=== PATIENT | female | born 1975 | race Caucasian/White ===

== ENCOUNTER 2023-10-12 14:32 | Emergency (ER) | payer BC, SELFPAY ==
[2023-10-12 14:36] VITALS: BP 100/71
--- NOTE | 2023-10-12 15:37 | ED.GENMED ---
History of Present Illness
General
Chief Complaint: Back Pain
Source: patient
Exam Limitations: none
Time Seen by Provider: 10/12/23 15:13
Nursing documentation reviewed up to this point in time: agreed with
History of Present Illness
History of Present Illness:
Patient is a 48 female who presents with complaints of low back pain. Patient returned 7 this morning she bent over to shave her legs in the shower and feels that she pulled her back out. She felt pain across her lower back worse on the left and
is now unable to straighten. She complains of pain with movement bending twisting turning. She denies any pain with deep breath. She denies any radiation of pain denies any numbness tingling weakness to legs. Denies any incontinence of bowel or
Review of Systems
Review of Systems
Allergies reviewed?: Yes
All Other Systems: ROS reviewed and negative except as documented in HPI and ROS
Constitutional: Reports no symptoms; Denies fever, fatigue or chills
: Denies incontinence
Musculoskeletal: Reports back pain
Skin: Reports no symptoms
Neurological: Reports no symptoms
Hematologic/Lymphatic: Reports no symptoms
Psychiatric: Reports no symptoms
Phy Exam
General Physical Exam
General Presentation: no apparent distress
General age: appears stated age
General Skin: warm and dry
General Habitus: normal
General Mental: alert
General Hydration: appears well hydrated
Neurological Exam
Neurological Exam: alert, oriented x3, no motor deficits, no sensory deficits and other (Normal sensation to bilateral lower extremities normal dorsiflexion plantarflexion negative straight leg raise)
Musculoskeletal Exam
Musculoskeletal Exam: other (Normal inspection to back with tenderness throughout the left lower paralumbar region no bony midline tenderness)
Skin Exam
Skin Exam: normal color and warm/dry
Psychiatric Exam
Psychiatric Exam: normal mood/affect
Course
Orders/Labs/Results
Orders:
Orders
10/12/23 15:35
diazePAM [Valium Injection] 5 mg IM NOW STA
10/12/23 15:36
Ketorolac [Toradol] 30 mg IM NOW STA
Lidocaine [Lidocaine 4% Patch] 1 patch TOPICAL NOW STA
Apply Lidocaine patch(s) to:: lower back left
Vital Signs
Initial and Last Documented VS:
Initial Vital Signs
Temp Pulse Resp BP Pulse Ox
97.4 F 76 18 100/71 98
10/12/23 14:36 10/12/23 14:36 10/12/23 14:36 10/12/23 14:36 10/12/23 14:36
Last Documented Vital Signs
Temp Pulse Resp BP Pulse Ox
97.4 F 71 18 116/78 100
10/12/23 14:36 10/12/23 16:45 10/12/23 16:45 10/12/23 16:45 10/12/23 16:45
MDM/Problems Addressed
Differential Diagnosis Includes:
Not limited to muscle strain less likely disc herniation
MDM/Problems Addressed:
Symptoms are consistent with muscle strain of lumbar spine. Patient with no neurological deficits . Patient was given Valium, Toradol and a lidocaine patch here feeling much better feels well enough to go home. Will DC with Valium ibuprofen or
Tylenol lidocaine patch and close outpatient follow-up family doctor.
*Critical Care Note
Total Time (30-74mins, 75-104mins- exclusive of procedures): Not Applicable
ED Attending Note
-
Portions of this chart may have been created with voice recognition software.� Occasional wrong word or��sound alike� substitutions may have occurred due to the inherent limitations of voice recognition software.
Discharge Plan
Departure
Patient Disposition: Home (Routine Discharge)
Date of Disposition: 10/12/23
Time of Disposition: 16:45
Patient with high blood pressure during this ER visit?: No
Condition: Fair
Covid-19: Not Applicable
Discharge Problem:
Lumbar strain
Instructions: Low Back Pain (DC), Muscle Strain (DC)
Prescriptions:
New
diazepam [Valium] 5 mg tablet
5 mg PO TID PRN (Reason: muscle spasm) Qty: 10 0RF
lidocaine 5 % adhesive patch,medicated
1 patch topical DAILY PRN (Reason: pain) Qty: 15 0RF
Rx Instructions:
remove after 12 hrs
Referrals:
Aaron Ruiz CRNP [Family Provider] -
Activity Restrictions/Additional Instructions:
As discussed ice the affected area for the first 24 hours 20 minutes at a time several times a day followed by warm moist heat after 24 hours.
You may take Aleve twice a day or ibuprofen every 8 hours. In addition you may take Tylenol every 4-6 hours. A prescription for Valium(muscle relaxer) was sent to pharmacy take as directed. In addition a prescription for lidocaine patch was also
sent to your pharmacy to use as directed.
This may be taken up to every 8 hours as needed. This will cause drowsiness. No driving or alcohol while taking this medication as discussed avoid prolonged positions. Avoid lifting. Follow-up with your family doctor the next several days and
return if any worsening of symptoms including worsening pain lower extremity weakness bowel or bladder incontinence.
Interventions
Interventions:
*Risk Screen - Suicide Last Done: 10/12/23 16:12
*General Assessment Last Done: 10/12/23 16:12
*Neglect/Abuse Screening Last Done: 10/12/23 16:12
ED- Fall Risk Assessment Last Done: 10/12/23 16:11
*ED COVID-19 Vaccine History Last Done: 10/12/23 14:42
ED-Musculoskeletal Assessment Last Done: 10/12/23 16:11
Discharge Date and Time
Print Language: SYRIAC
[2023-10-12] MEDS: LIDOCAINE 4% PATCH 1 PATCH TOPICAL (15:52)
[2023-10-12] MEDS: TORADOL 30 MG IM (15:52)
[2023-10-12] MEDS: VALIUM INJECTION 5 MG IM (15:52)
[2023-10-12 16:45] VITALS: BP 116/78
== END 2023-10-12 16:53 | disposition home or self-care (01) ==
LOC: EMR 14:32
PROVIDERS: EMERGENCY PHYSICIAN Emergency Medicine; FAMILY PHYSICIAN Nurse Practitioner Family
DX: S39.012A Strain of muscle, fascia and tendon of lower back, initial encounter (principal); X58.XXXA Exposure to other specified factors, initial encounter; Y93.E8 Activity, other personal hygiene; R56.9 Unspecified convulsions
CPT/HCPCS: 99284; 96372 ×2

== ENCOUNTER 2024-06-29 18:27 | Inpatient (IN) | payer BC, SELFPAY ==
[2024-06-29] VITALS (19 sets, daily range): BP systolic 91–127; BP diastolic 65–83; BMI 28.6
--- NOTE | 2024-06-29 14:38 | ED.GENMED ---
History of Present Illness
General
Chief Complaint: Chest Pain
Source: patient
Exam Limitations: none
Time Seen by Provider: 06/29/24 14:23
History of Present Illness
History of Present Illness:
See MDM
Past History
Past History
ED Past Medical History: None
ED Past Surgical History: Appendectomy
Social History
Tobacco: Former smoker
Alcohol: None
Phy Exam
Physical Exam
Physical Exam:
See MDM
Scores
Heart Score for Chest Pain Patients
STEMI patient?: No
History: Highly Suspicious
ECG: Normal
Age: >45 - <65 years
Risk Factors: 1 or 2 Risk Factors
Troponin: </= Normal Limit
Heart Score for Chest Pain Patients: 4
Heart Score Risk: 20.3% MACE over next 6 weeks
Course
Orders/Labs/Results
Orders:
Orders
06/29/24
Electrocardiogram (*1) Stat
Comment: DONE
06/29/24 14:26
EKG [Electrocardiogram (*1)] Urgent
Reason for Study: Chest Pain
EKG- Treatment ONCE
06/29/24 14:36
CR Chest - 2 Views Urgent
Comment:
Reason For Exam: chest pain
06/29/24 14:37
Complete Blood Count/With Diff Urgent
Comprehensive Metabolic Panel Urgent
Troponin I Urgent
06/29/24 15:40
Ondansetron Injectable [Zofran] 88 mg .ROUTE .STK-MED ONE
06/29/24 15:42
EKG with chest pain [ECG as needed] As Directed
ECG as needed for:: Chest Pain
06/29/24 15:43
Nitroglycerin Sublingual [Nitrostat (Sublingual)] 0.4 mg .ROUTE .STK-MED ONE
06/29/24 15:44
Ondansetron Injectable [Zofran] 4 mg IV NOW STA
06/29/24 15:45
Nitroglycerin Sublingual [Nitrostat (Sublingual)] 0.4 mg SL NOW STA
06/29/24 15:56
Consult Cardiology [CARDIOLOGY CONSULT] Urgent
Consulting Provider: Abelardo Lema
Was physician already notified: Yes
06/29/24 16:29
Troponin I Urgent
06/29/24 16:33
EKG [Electrocardiogram (*1)] Stat
Reason for Study: Chest Pain
06/29/24 16:51
Admit/Transfer Patient As Directed
Co-Sign Provider:
Level of Care: Inpatient admission
Assign to:: IVU
Physician / Group: [facility]
Diagnosis: Accelerating angina
Reason for Hospitalization: Accelerating angina
Expected length of stay greater than two midnights?: Yes
ELOS- Estimated Length of Stay in days: 3
I certify the patient meets the requirements for IP care: Yes
Code Status As Directed
Resuscitation Status: Full Code
PRN Pain Medication Management As Directed
May give lesser potent ordered pain med per pt: Yes
preference::
Protocol:: Medication orders for pain may be administered in a
manner that supports deferring to patient preference
when the pt is:
- Requesting an ordered lesser potent pain medication.
Least to most potent pain medications are defined
as: acetaminophen < NSAID < tramadol < opioids
(morphine, oxycodone, hydromorphone).
- Requesting a lesser dose of the same medication IF
ORDERED.
- Requesting a less intrusive route of administration
if both routes are prescribed by the provider (PO <
IV).
Abnormal Lab Results
06/29/24
14:37
MPV 11.6 H fL
(7.4-10.4)
Absolute Monos (auto) 0.7 H 10^3/uL
(0.1-0.6)
06/29/24 14:37
06/29/24 14:37
Vital Signs
Initial and Last Documented VS:
Initial Vital Signs
Temp Pulse Resp BP Pulse Ox
98.7 F 85 16 120/82 95
06/29/24 14:21 06/29/24 14:21 06/29/24 14:21 06/29/24 14:21 06/29/24 14:21
Last Documented Vital Signs
Temp Pulse Resp BP Pulse Ox
98.7 F 74 14 111/66 100
06/29/24 14:21 06/29/24 16:45 06/29/24 16:45 06/29/24 15:48 06/29/24 16:45
MDM/Problems Addressed
Differential Diagnosis Includes:
HPI and MDM Narrative:
48-year-old female presenting for evaluation of central chest pain described as gastritis. She noted at work about an hour prior to arrival. EMS gave nitroglycerin and aspirin and symptoms appear to resolve. Patient is worried because she has a
significant family history of early cardiac disease. Patient is a former smoker. She takes no medicines otherwise. She has never followed up with cardiology. She has noted intermittent chest discomfort over the past several days that has woken
her up from sleep
Given her history, will obtain 2 troponin rule out. Symptoms do not appear to be exertion
Physical exam
General: Well appearing and non-toxic
HEENT: protecting airway
Neck: appears supple
CV: No evidence of cyanosis. Regular rate and rhythm
Resp: No accessory muscle use
Abd: Non-distended
Extremities: No deformities. No leg edema or unilateral tenderness
Neuro: alert
Psych: Normal affect
Skin: Intact
Problems Addressed including Acute and Chronic Conditions affecting care:
1. Chest pain
Acuity: acute
Prognosis: stable
Details: Given her strong family history of early cardiac disease, will perform 2 troponin rule out
Updates
Initial troponin EKG within normal limits
3:50 PM I was called to bedside for sudden onset of chest pain. It was again relieved with nitroglycerin. Repeat EKG again shows no ischemic changes. Given the recurrent chest pain that is improved with nitro, will have cardiology eval
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
Differential Diagnosis (but not limited to): Noncardiac chest pain, ACS, gastritis
Testing considered:
Drug therapy (if applicable): OTC meds, please see d/c instruction regarding Rx drugs
Amount and/or Complexity of Data Reviewed
Clinical info obtained from: Patient
External data reviewed: N/A
Labs I independently reviewed (but not limited to): Troponin normal
Radiology: N/A
Pulse Ox: not hypoxic
EKG independently reviewed: Sinus rhythm, normal axis, no STEMI
Glass Driller: Sinus rhythm
Critical Care: N/A
Risk of Complication:
Social Determinants of health: Good social support
Discussed with other providers: Cardiology
Escalation of Care includes Admit/Obs: Given history and current symptoms, cardiology will bring to [facility]
Occasional wrong word or 'sound a like' substitutions may have occurred due to the inherent limitations of voice recognition software. Read the chart carefully and recognize, using context, where substitutions have occurred.
*Critical Care Note
Total Time (30-74mins, 75-104mins- exclusive of procedures): Not Applicable
ED Attending Note
-
Portions of this chart may have been created with voice recognition software.� Occasional wrong word or��sound alike� substitutions may have occurred due to the inherent limitations of voice recognition software.
Discharge Plan
Departure
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
Date of Disposition: 06/29/24
Time of Disposition: 17:00
Admit to: center medical and lab director
Presentation/result/management discussed w/ accepting MD/DO: Photographer Still
Discharge Problem:
Chest pain
Prescriptions:
No Action
diazepam [Valium] 5 mg tablet
5 mg PO TID PRN (Reason: muscle spasm) Qty: 10 0RF
lidocaine 5 % adhesive patch,medicated
1 patch topical DAILY PRN (Reason: pain) Qty: 15 0RF
Rx Instructions:
remove after 12 hrs
Interventions
Interventions:
*Risk Screen - Suicide Last Done: 06/29/24 14:35
*General Assessment Last Done: 06/29/24 14:26
*Neglect/Abuse Screening Last Done: 06/29/24 14:35
*ED- Fall Risk Assessment Last Done: 06/29/24 14:26
*ED COVID-19 Vaccine History Last Done: 06/29/24 14:26
ED- Cardiac Assessment Last Done: 06/29/24 16:53
Discharge Date and Time
Print Language: KENYAN
[2024-06-29 14:45] LABS: % Basophils 0.7 % (0-2); % Eosinophils 1.7 % (0-6); % Immature Granulocytes 0.4 % (0-0.5); % Lymphocytes 32.5 % (20.5-51.1); % Monocytes 7.7 % (1.7-9.3); Absolute Basophils 0.1 10^3/uL (0-0.2); Absolute Eosinophils 0.1 10^3/uL (0-0.7); Absolute Lymphocytes 2.8 10^3/uL (1.2-3.4); Absolute Monocytes 0.7 10^3/uL (0.1-0.6); Absolute Neutrophils 4.8 10^3/uL (1.4-6.5); Hematocrit 39.9 % (37.0-47.0); Hemoglobin 13.2 g/dL (12.0-16.0); Mean Corp Hgb Conc. 33.1 g/dL (33.0-37.0); Mean Corpuscular Hgb 28.5 pg (27.0-31.0); Mean Corpuscular Volume 86.2 fL (81.0-99.0); Mean Platelet Volume 11.6 fL (7.4-10.4); Nucleated Red Blood Cells % 0 %; Platelet Count 225 10^3/uL (130-400); Red Blood Cell Count 4.63 10^6/uL (4.20-5.40); Red Cell Dist. Width 13.4 % (11.5-14.5); White Blood Cell Count 8.5 10^3/uL (4.8-10.8)
[2024-06-29 14:58] LABS: ALT (SGPT) 16 U/L (0-35); AST (SGOT) 22 U/L (14-36); Albumin 3.9 g/dl (3.5-5.0); Alkaline Phosphatase 72 U/L (38-126); Blood Urea Nitrogen 12 mg/dl (7-17); Calcium 9.6 mg/dl (8.4-10.2); Carbon Dioxide 28 mmol/L (22-30); Chloride 106 mmol/L (98-107); Estimated Creatinine Clearance 78 ml/min; Glucose 82 mg/dl (70-99); Potassium 4.4 mmol/L (3.5-5.1); Sodium 141 mmol/L (135-145); Total Bilirubin 0.6 mg/dl (0.2-1.3); Total Protein 6.5 g/dl (6.3-8.2); eGFR > 60.00
[2024-06-29 15:10] LABS: Troponin I < 0.012 ng/ml
[2024-06-29] MEDS: NITROSTAT (SUBLINGUAL) 0.4 MG SL ×3 (15:43→20:19)
[2024-06-29] MEDS: ZOFRAN 4 MG IV (15:44)
--- NOTE | 2024-06-29 16:34 | HPS.HSE ---
Addendum entered and electronically signed by Abelardo Lema MD 06/29/24 17:12:
I saw and examined the patient.
The PEANUT GRADER's note was reviewed and I agree with the note.
Comment: 48 yo with concerning story for accelerated angina with resting typical anginal symptoms and relief with nitro; we will proceed with coronary angiography.
Original Note:
Family Physician
-
Family Physician: JENNIFFER Metz
Chief Complaint
-
Chest pressure
History of Present Illness
Emely Moreno is a 48-year-old female with prior seizure and former smoker with a family history of premature coronary artery disease who presented to the emergency department the chief complaint of chest pressure. Her chest discomfort initially
started on Tuesday, 5 days ago. She thought it was reflux. Episodes of discomfort did not last long. 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
her left arm. The staff at the surgical suite checked her blood pressure and EKG and then called EMS. EMS provided her with nitroglycerin which resolved her symptoms. Blood pressure was stable and no acute findings on EKG. Initial troponin less
than 0.012. EKG stable in ER. While in the emergency department, she developed chest pressure and rated it 7/10 in severity. It went up the left side of her neck. She felt like she was going to vomit. She got relief with sublingual
nitroglycerin.
Medical History
Past Medical History
Past Medical History: Reports Seizures
Past Surgical History: Reports Appendectomy and Gynocological
Social History
Tobacco: Former Smoker
Alcohol: None
Personal:
Living: With Family
Employment: Employed
Family History
Family History: Early CAD (Brother with CAD at age 39. Mother with CEA due to mesenteric ischemia at age 55.)
Allergies / Home Medications
Allergies reflects when Allergies were last updated in [facility] [employer].
Home Medications with original date entered in [employer]
Allergy/Medication List:
Tylenol with codeine caused itching
Dilantin caused hives
Review of Systems
-
History Source: Patient
A 12 point ROS was completed and negative except as noted: Yes
Constitutional: Reports No Symptoms
EENT: Reports No Symptoms
Respiratory: Reports No Symptoms
Cardiac: Reports See HPI
Abdomen/GI: Reports No Symptoms
: Reports No Symptoms
Musculoskeletal: Reports No Symptoms
Skin: Reports No Symptoms
Neurological: Reports No Symptoms
Endocrine: Reports No Symptoms
Hematologic/Lymphatic: Reports No Symptoms
Psych: Reports No Symptoms
Physical Exam
Vital Signs
Vital Signs
Temp Pulse Resp BP Pulse Ox
98.7 F 88 16 111/66 94
06/29/24 14:21 06/29/24 15:47 06/29/24 15:47 06/29/24 15:48 06/29/24 15:47
Physical Exam
General: Well Developed, Well Nourished, No Apparent Distress and Comfortable
HEENT: NormoCephalic, Anicteric and Moist mucous membranes
Respiratory: Clear and Non Labored Respirations
Cardiac: S1/S2 and Regular Rhythm
Breast: Deferred by me
GI: Soft, Non Tender, Non Distended and Normal Bowel Sounds
Rectal: Deferred by Provider
Genito-urinary: No costovertebral tender
Musculoskeletal: No Clubbing, No Cyanosis and No Edema
Skin: Warm and Dry
Neuro: AO x 3
Hematologic/Lymphatic: No Lymphadenopathy
Psych: Calm and Intact Judgment/Insight
Laboratory Results
-
06/29/24 14:37
06/29/24 14:37
Laboratory Results
Total Bilirubin 0.6 mg/dl (0.2-1.3) 06/29/24 14:37
AST 22 U/L (14-36) 06/29/24 14:37
ALT 16 U/L (0-35) 06/29/24 14:37
Alkaline Phosphatase 72 U/L (38-126) 06/29/24 14:37
Troponin I < 0.012 ng/ml 06/29/24 14:37
Data Reviewed
-
Diagnostic Radiology: Report Reviewed by me
Lab Data: Labs Reviewed by me
Old Records: Reviewed
Impression/Plan
-
IMPRESSION/PLAN: 48F with prior seizure, former smoker, & FH premature CAD presents with chest pain.
Accelerating angina
-Chest pressure improving with SL NTG
-Now with radiation and associated nausea
-EKG stable
-Ischemic evaluation today
Former smoker, continue cessation recommended
[2024-06-29 17:01] LABS: Troponin I < 0.012 ng/ml
--- NOTE | 2024-06-29 17:55 | ITS.CL.PN ---
Stylist Assistant - Procedure Note
Procedure
Procedure Note:
CARDIAC CATHETERIZATION REPORT
Date of Procedure: 06/29/2024
Referring: Dr. Abelardo Lema MD
Indication: acute coronary syndrome, accelerating angina
PROCEDURE(S)
1. left heart catheterization
2. coronary angiography
ACCESS: 6F right radial artery (closure: radial band)
CATHETERS
1. 6F JR4
2. 6F JL3.5
MODERATE SEDATION: 25 minutes of moderate sedation was utilized. An independent medical science liaison was present to assist with and help manage the patient's level of consciousness and physiologic status.
ULTRASOUND GUIDED VASCULAR ACCESS (right radial artery): Ultrasound was utilized for vascular access. The vessel was visualized under ultrasound and noted to be patent. An image of the vessel was stored permanently in the patient's medical record.
Under direct ultrasound guidance, vascular access was obtained using a modified Seldinger technique and a 6 Syriac sheath was placed.
HEMODYNAMIC DATA
LV 110/13 (EDP 22) mmHg
AO 113/70 (mean 93) mmHg
CORONARY ANGIOGRAPHY
Dominance: Right
LM: Large, normal
LAD: Trifurcates early into a moderate caliber apical branch, large diagonal branch, and small diagonal branch. There is no coronary artery disease.
LCx: Large vessel giving rise to a single branching OM1. There is no coronary artery disease.
RCA: Large vessel giving rise to a moderate caliber RPDA and large RPL branch. There is no coronary artery disease.
RADIATION: 192.91 mGy; DAP 15.6783 Gy*cm2; fluoroscopy time 2.8 min
CONCLUSIONS
1. Normal coronary arteries and a right dominant system
2. Mildly elevated LV filling pressure and no aortic stenosis
RECOMMENDATIONS
1. Primary prevention of coronary artery disease
2. Outpatient TTE
Signed: Larry Garcia MD, PhD
--- NOTE | 2024-06-29 18:39 | PTCARENOTE ---
Pt received s/p cardiac cath. AAOx3. NSR on tele, HRs 70s. TR band on R radial. SpO2 100%, pulse ox on R hand. Neurovascular checks WDL. Pt complaining of 5/10 L sided chest pain radiating to L shoulder. PRN SL nitro given. On reassessment pt chest
pain 3/10. BP 100/73. Pt resting in bed, call [place]lock in reach. Spouse at bedside.
[2024-06-29] MEDS: MAALOX 30 ML PO (19:50)
--- NOTE | 2024-06-29 21:25 | PTCARENOTE ---
Pt developed left chest pain 7/10 when was getting out of bed. Pt stated that pain was shooting in her left arm and neck, and was associated with nausea. Nitro SL x 1 was given with pain improved to 2/10. EKG done, CVPA made aware
[2024-06-30] MEDS: TORADOL 15 MG IV (00:48)
[2024-06-30] MEDS: DILAUDID 0.25 MG IV (01:25)
[2024-06-30 03:58] VITALS: BP 97/53
[2024-06-30 04:56] LABS: Blood Urea Nitrogen 15 mg/dl (7-17); Carbon Dioxide 27 mmol/L (22-30); Chloride 108 mmol/L (98-107); Estimated Creatinine Clearance 89 ml/min; Glucose 91 mg/dl (70-99); HDL Cholesterol 49 mg/dl; LDL Cholesterol, Calculated 108 mg/dl; Potassium 4.2 mmol/L (3.5-5.1); Sodium 141 mmol/L (135-145); Total Cholesterol 174 mg/dl (50-199); Triglyceride 89 mg/dl (10-149); Very Low Density Lipoprotein 17 mg/dl (0-30); eGFR > 60.00
[2024-06-30 07:14] VITALS: BP 111/69
--- NOTE | 2024-06-30 07:34 | W.PN.CD ---
Addendum entered and electronically signed by Demian Andrews MD 06/30/24 11:00:
I saw and examined the patient.
The HEEL SANDER's note was reviewed and I agree with the note.
Comment: Anticipate home after GI evaluation.
Original Note:
Today's Communication / Plan
-
Persistent chest pain
D-dimer
Start PPI
Consult GI
Impression / Plan
-
IMPRESSION/PLAN: 48F with prior seizure, former smoker, & FH premature CAD presents with chest pain.
Chest pain, non cardiac
-Cardiac catheterization without coronary artery disease
-Continued left-sided chest pressure. No relief with Maalox nor Toradol. Only achieved relief with Dilaudid.
-D-dimer < 0.27, add on LFTs & Lipase - Consult GI
PVCs, asymptomatic
Family history of premature CAD
-Brother with ND and PCI at age 39
-Mother with CEA and then due to mesenteric ischemia at age 55
Former smoker, continue cessation recommended
Physical Exam
Vital Signs/Labs
Vital Signs
Temp Pulse Resp BP Pulse Ox
97.7 F 74 16 97/53 97
06/30/24 03:55 06/30/24 05:45 06/30/24 03:55 06/30/24 03:58 06/30/24 03:58
06/29/24 06/30/24 07/01/24
06:59 06:59 06:59
Actual Weight 70.76 kg
06/29/24 14:37
06/30/24 04:18
Triglycerides 89 mg/dl (10-149) 06/30/24 04:18
LDL Cholesterol, Calc 108 mg/dl 06/30/24 04:18
VLDL Cholesterol, Calc 17 mg/dl (0-30) 06/30/24 04:18
HDL Cholesterol 49 mg/dl 06/30/24 04:18
LAB Results
06/29/24 06/29/24
14:37 16:29
Troponin I < 0.012 < 0.012
Physical Exam
Constitutional: No acute distress and Comfortable
EENT: Anicteric and Moist mucous membranes
Cardiovascular: Rhythm & rate is regular and Pedal edema is absent
Respiratory: Respiratory effort normal and Lungs clear to auscul.
GI: Soft, Distention absent, Flat, Non tender and Normal bowel sounds
Neuro/Psych: AO x 3
Other: Skin (warm and dry)
Data Reviewed
-
Date of Service: June 30, 2024
EKG: Report Reviewed by me
Labs: Labs Reviewed by me
Old Records: Reviewed
[2024-06-30 08:33] VITALS: BP 117/54
[2024-06-30] MEDS: MOTRIN 600 MG PO (08:40)
[2024-06-30] MEDS: PROTONIX 40 MG PO (08:40)
[2024-06-30 08:51] LABS: D-Dimer < 0.27 ug/mlFEU (0.00-0.50)
[2024-06-30 09:48] LABS: Glycohemoglobin (HgbA1c) 5.2 % (4.0-5.6)
[2024-06-30 10:32] LABS: ALT (SGPT) 15 U/L (0-35); AST (SGOT) 20 U/L (14-36); Albumin 3.6 g/dl (3.5-5.0); Alkaline Phosphatase 72 U/L (38-126); Direct Bilirubin 0.1 mg/dl (0.0-0.4); Lipase 51 U/L (23-300); Total Bilirubin 0.6 mg/dl (0.2-1.3)
--- NOTE | 2024-06-30 10:58 | CON.GI ---
Addendum entered and electronically signed by Gary Gamez MD 06/30/24 11:40:
Patient seen and examined, agree with nurse practitioner note. The patient is a 48-year-old female with past medical history as noted who presents with chest pressure. She describes chest pain, as a pressure sensation, rating to her left shoulder,
sometimes to her back. This was worse when she was sitting up from a laying down position. Given her family history she had cardiac workup including catheterization that was negative. She denies any eating association to her pain. She denies any
fever or chills. She does have a GI history of H. pylori which was treated and document eradication after 2 rounds of antibiotics. She does admit to some occasional solid food dysphagia, and occasional belching regurgitation is mostly situational,
especially when bending over. Her last colonoscopy was more than 10 years ago and okay by report. Labs including LFTs, and imaging including chest x-ray were unremarkable. On exam she has no significant reproducible chest wall tenderness or
abdominal tenderness.
1. Chest pain: Overall atypical, with negative cardiac workup, no obvious GI associations, possibly related to musculoskeletal pain especially given her cervical spine disease. We discussed it is reassuring that her cardiac workup was
unremarkable. There could be some component of esophageal spasm as nitro did help, though would not explain the radiation to her back or arm. Given her intermittent dysphagia, will plan EGD as an outpatient, discussed supportive care for now. She
is due for screening colonoscopy will plan colonoscopy at time of endoscopy in the future. Would continue PPI daily for now and Pepcid as needed. Will arrange for outpatient GI follow-up and subsequent procedures.
Original Note:
Consultation
-
Date/Time Consultation Requested: 06/30/24 1000
Date/Time Consultation Performed: 06/30/24 1030
Requesting Provider: JENNIFFER Greer
Performing Provider: Dr. Gamez/JENNIFFER Samuel
Reason for Consultation: cp/epigastric pain
Medical History
Chief Complaint / HPI
Chief Complaint: cp/epigastric pain
History of Present Illness:
48-year-old female with past medical history of seizure disorder as a child, seasonal allergies, degenerative disc disease and spinal stenosis cervical spine, H. pylori with ulcers diagnosed approximately 12 to 15 years ago with eradication, GERD
with significant family history of premature coronary disease who presents to the emergency room with chest pressure. The patient went through cardiac workup including cardiac cath that was negative. We are asked to evaluate for the same. Patient
states that over the past year she has gained approximately 40 pounds. She had increase in reflux symptoms having to utilize Pepcid at least twice a day. Also utilizing Tums. She has noticed that she has had some nocturnal regurgitation of food.
She understands that her dietary triggers are spicy food, green peppers. She tries to avoid these. She does not utilize any NSAIDs. She drinks approximately 1 alcoholic beverage a month. She tries to avoid eating at least 3 hours prior to
bedtime. She states that last Tuesday night she ate approximately 6:00 at night. Went to bed around 9 and woke up in the middle of the night with chest discomfort. Belching and regurgitation. She tried taking Pepcid without any relief. She
tried Gas-X which did give her minimal relief. She does state that on occasion she will swallow something and feel like it does not necessarily get stuck but has a spasm like sensation. She does not have any true dysphagia or odynophagia. She did
have an episode here where she had a sensation where she felt like she was going to vomit and she had relief with sublingual nitro. She does have alteration in bowel habits ranging from constipation to diarrhea. She is due for colonoscopy at this
time with last 1 being approximately 10 to 15 years ago. It was normal at that time. No family history of gastrointestinal malignancy or IBD. She was given a dose of Maalox last night however was given a dose of Dilaudid at the same time and her
pain did go away. She is unsure if it was Dilaudid or the Maalox that helped. Ibuprofen and ketorolac did not change her symptoms. She was started on pantoprazole 40 mg this morning. The patient denies any fevers, chills, nausea other than the
event leading to this hospitalization, vomiting, melena, hematochezia, true dysphagia or odynophagia. No early satiety or unintentional weight loss.
Past Medical History
Past Medical History: Other (Seizure disorder (as a child), degenerative disc disease, cervical spinal stenosis, seasonal allergy, history of H. pylori status post treatment and eradication,)
Past Surgical History: Other (LEEP procedure, appendectomy)
Social History
Tobacco: Former Smoker
Alcohol: Occasional (Rare alcohol less than once a month)
Drug: None
Personal:
Living: With Family
Employment: Employed
Family History
Family History: Other (No family history of gastrointestinal malignancy or IBD)
Allergies / Home Medications
Allergy/AdvReac Type Severity Reaction Status Date / Time
acetaminophen Allergy Itching Verified 10/12/23 14:45
[From Tylenol-Codeine]
codeine Allergy Itching Verified 10/12/23 14:45
[From Tylenol-Codeine]
phenytoin [From Dilantin] Allergy Hives Verified 10/12/23 14:45
�Medication �Instructions �Recorded
fluticasone propionate 50 1 spray intranasal DAILY 06/29/24
mcg/actuation nasal
spray,suspension
Review of Systems
-
All other systems: A 12 pt ROS was Negative except as stated above in HPI
Vital Signs
Temp Pulse Resp BP Pulse Ox
97.7 F 68 18 117/54 95
06/30/24 07:14 06/30/24 08:33 06/30/24 07:14 06/30/24 08:33 06/30/24 09:15
Physical Exam
Exam
General: No Apparent Distress
HEENT: Anicteric
Respiratory: Clear
Cardiac: Regular Rhythm
GI: Soft, Non Tender, Non Distended and Normal Bowel Sounds
Musculoskeletal: No Edema
Skin: Warm and Dry
Neuro: AO x 3
Psych: Calm
Results
WBC 8.5 10^3/uL (4.8-10.8) 06/29/24 14:37
Hgb 13.2 g/dL (12.0-16.0) 06/29/24 14:37
Hct 39.9 % (37.0-47.0) 06/29/24 14:37
MCV 86.2 fL (81.0-99.0) 06/29/24 14:37
Plt Count 225 10^3/uL (130-400) 06/29/24 14:37
Absolute Neuts (auto) 4.8 10^3/uL (1.4-6.5) 06/29/24 14:37
Sodium 141 mmol/L (135-145) 06/30/24 04:18
Potassium 4.2 mmol/L (3.5-5.1) 06/30/24 04:18
Chloride 108 mmol/L (98-107) H 06/30/24 04:18
Carbon Dioxide 27 mmol/L (22-30) 06/30/24 04:18
BUN 15 mg/dl (7-17) 06/30/24 04:18
Creatinine 0.7 mg/dL (0.6-1.0) 06/30/24 04:18
Calcium 9.0 mg/dl (8.4-10.2) 06/30/24 04:18
Total Bilirubin 0.6 mg/dl (0.2-1.3) 06/30/24 10:11
AST 20 U/L (14-36) 06/30/24 10:11
ALT 15 U/L (0-35) 06/30/24 10:11
Alkaline Phosphatase 72 U/L (38-126) 06/30/24 10:11
Lipase 51 U/L (23-300) 06/30/24 10:11
Diagnostic Image Results:
Chest x-ray:IMPRESSION:
No acute disease of the chest
Prior GI Procedures:
EGD: Approximately 12 to 15 years ago performed at [facility]. History of H. pylori status posttreatment x 2 with confirmed eradication per patient.
Colonoscopy: Approximately 12 to 15 years ago performed at [facility]. Patient states was normal. Due for repeat at this time per patient. Records not available to us
Assessment / Plan
-
48-year-old female with past medical history of seizure disorder as a child, seasonal allergies, degenerative disc disease and spinal stenosis cervical spine, H. pylori with ulcers diagnosed approximately 12 to 15 years ago with eradication, GERD
with significant family history of premature coronary disease who presents to the emergency room with chest pressure. The patient went through cardiac workup including cardiac cath that was negative. We are asked to evaluate for the same. Patient
with history of GERD, been using Pepcid, Gas-X and Tums more recently. Having reflux symptoms with prior history of H. pylori status posttreatment x 2 with eradication approximately 12 to 15 years ago. Possible component of esophageal spasm as
with complaints of feeling like something is 'grabbing' in her esophagus. No true dysphagia or dyne aphasia. No weight loss. Actually with weight gain that correlates with onset of reflux symptoms. No alarm symptoms at present time. Okay for
discharge from GI perspective. Will start on pantoprazole 40 mg in the morning. Patient instructed to take 30 minutes prior to a.m. meal. Can take Pepcid 20 mg twice daily as needed. Will follow-up as an outpatient.
Impression:
Chest discomfort/epigastric pain
-cardiac cath that was negative, negative troponin x 2.
-Normal LFTs
-Normal lipase
-Normal chest x-ray
-Hemoglobin within normal limits
-Negative D-dimer
GERD
Prior history of H. pylori status posttreatment x 2 with confirmed eradication per patient (10 to 12 years ago)
Due for colorectal cancer screening (last screening approximately 12 to 15 years ago)
Plan:
-Pantoprazole 40 mg p.o. daily. Patient instructed to take 30 minutes prior to a.m. meal
-Can use Pepcid 20 mg p.o. twice daily as needed
-Follow-up in the office posthospital discharge. Will send note to office for posthospitalization follow-up.
-Patient will need EGD/colonoscopy as an outpatient.
-Okay per GI for discharge. Discussed with cardiology
-
-
Thank you for consultation and allowing me to participate in the patient's care. Please call the marine electronics repairer GI physician during the after hours with any questions or concerns.
--- NOTE | 2024-06-30 11:12 | W.DS.TRANS ---
DC Summary - [employer] Super[employer]
-
Discharge Instructions:
Discharge Diagnosis/Procedures Chest pain
Procedure 06/29/2024: Cardiac catheterization
without findings of coronary artery disease
GERD
Diet Low Cholesterol,Low Sodium
Activity No strenuous activity
Additional Activity See attached instructions
Driving Restrictions No driving for 24 hours
Bathing Restrictions None
Instructions:
Stand-Alone Forms: DC Instructions- Cath/EP Lab
Changes to Home Medications: Yes
Discharge Medications:
DC Medications w/original date entered in [employer]
fluticasone propionate 50 mcg/actuation nasal spray,suspension 1 spray intranasal DAILY 06/29/24
famotidine 20 mg tablet (Pepcid) 20 mg PO BID PRN Reflux #60 tabs 06/30/24
pantoprazole 40 mg tablet,delayed release (Protonix) 40 mg PO DAILY #30 tabs 06/30/24
Home Medication Changes
Famotidine and pantoprazole are new
Pending Results: No
[2024-06-30 11:27] VITALS: BP 113/75
== END 2024-06-30 13:14 | disposition home or self-care (01) | DRG 287 ==
LOC: IVU 18:27
PROVIDERS: Nurse Practitioner Gerontology; Student in an Organized Health Care Education/Training Program; ADMITTING PHYSICIAN Internal Medicine Cardiovascular Disease; CONSULT PHYSICIAN Internal Medicine Gastroenterology; EMERGENCY PHYSICIAN Student in an Organized Health Care Education/Training Program
PROC: 4A023N7 Measurement of Cardiac Sampling and Pressure, Left Heart, Percutaneous Approach (ICD-10-PCS; 2024-06-29)
PROC: B2111ZZ Fluoroscopy of Multiple Coronary Arteries using Low Osmolar Contrast (ICD-10-PCS; 2024-06-29)
DX: I20.0 Unstable angina (principal); I49.3 Ventricular premature depolarization; I24.9 Acute ischemic heart disease, unspecified; K21.9 Gastro-esophageal reflux disease without esophagitis; Z82.49 Family history of ischemic heart disease and other diseases of the circulatory system; Z87.891 Personal history of nicotine dependence; G40.909 Epilepsy, unspecified, not intractable, without status epilepticus; Z90.49 Acquired absence of other specified parts of digestive tract; M50.30 Other cervical disc degeneration, unspecified cervical region; Z86.19 Personal history of other infectious and parasitic diseases; M48.02 Spinal stenosis, cervical region; Z88.6 Allergy status to analgesic agent; Z88.5 Allergy status to narcotic agent
CPT/HCPCS: 71046; 76937; 80048; 80053; 80061; 80076; 83036; 83690; 84484; 85025; 85379; 93005; 93458; 96374; 99152; 99153; 99285; C1894; Q9967

== ENCOUNTER → 2024-08-10 15:46 | Outpatient (REF) | payer BC, SELFPAY | LOC: HWRCS 15:46 | PROVIDERS: ATTENDING PHYSICIAN Nurse Practitioner; FAMILY PHYSICIAN Nurse Practitioner Family | DX: R07.89 Other chest pain (principal) | CPT/HCPCS: 93306 ==

== ENCOUNTER 2024-09-21 06:17 | Day surgery (SDC) | payer BC, SELFPAY | END 2024-09-21 10:18 | disposition home or self-care (01) | LOC: GI 06:17 | PROVIDERS: ATTENDING PHYSICIAN Internal Medicine Gastroenterology; FAMILY PHYSICIAN Nurse Practitioner Family | DX: Z12.11 Encounter for screening for malignant neoplasm of colon (principal); K64.8 Other hemorrhoids; R12 Heartburn; K31.89 Other diseases of stomach and duodenum; D12.4 Benign neoplasm of descending colon; D12.2 Benign neoplasm of ascending colon | CPT/HCPCS: 45385; 43239; 88305; 88342 ==